=== PATIENT | female | born 1990 | race Caucasian/White ===

== ENCOUNTER 2016-12-28 21:19 | Emergency (ER) | payer OTHER ==
[~2016-12-28] VITALS: Ht 152.4 cm; Wt 74.8 kg
[~2016-12-28 21:19] MED LIST: AZAT50TA PO; AZAT50TA20 PO; BUDE3CAP15 PO; HYDR-2758 PO; HYDR-2762 PO; HYDR-971 PO; LINA290C PO; METR500T PO; OMEP40CA5 PO; ONDA4TAB12 SL; OXYC-323 PO; PANT40TA3 PO; PRED20TA PO; REMI100D IV
[2016-12-28] MEDS ORDERED: fentaNYL PF VIAL 100 MCG/2 ML VIAL IV ONE ×2 (21:45→23:30)
[2016-12-28] MEDS ORDERED: IV NORMAL SALINE 1000ML BAG 1,000 ML IV ONE (21:45)
[2016-12-28] MEDS ORDERED: ONDANSETRON PF 4 MG/2 ML VIAL. IV ONE (21:45)
--- NOTE | 2016-12-28 21:47 | PHYS DOC ---
Past Medical History Past Medical History: Other Additional Past Medical Histor: Crohn's disease Past Surgical History: Appendectomy, Colectomy, Other Additional Past Surgical Histo: Bowel resection, prateek cath Alcohol Use: None Drug Use: None Adult General Chief Complaint Chief Complaint: ABDOMINAL PAIN HPI HPI Patient is a 26 year old F who presents with abdominal pain and nausea/vomiting /diarrhea for the past 2 days. Patient states she has a history of Crohn's with a bowel resection a couple years ago with a history of small bowel obstructions. Patient states she also has no appendix or gallbladder. Patient states she's been unable to keep anything down and has had persistent diarrhea. Patient denies any fevers. Patient denies any chest pain or shortness of breath. Patient has no other complaints. Review of Systems Review of Systems GEN: Denies fevers, chills, sweats HEENT: Denies blurred vision, sore throat CV: Denies chest pain RESP: Denies shortness of air, cough GI: Generalized abdominal pain with nausea/vomiting/diarrhea NEURO: Denies confusion, dizziness MSK: Denies weakness, joint pain/swelling Current Medications Current Medications Current Medications Medications (Trade) Dose Ordered Sig/Darcy Start Time Stop Time Status Last Admin Dose Admin Fentanyl Citrate (Fentanyl 2ml Vial) 50 mcg 1X ONCE 12/28/16 23:30 12/28/16 23:31 DC 12/28/16 23:28 50 MCG Info (Do NOT chart on this entry -- for MONITORING) 1 each PRN DAILY PRN 12/28/16 22:00 12/30/16 21:59 Iohexol (Omnipaque 300 Mg/ml) 75 ml 1X ONCE 12/28/16 22:00 12/28/16 22:01 DC Ondansetron HCl (Zofran) 4 mg 1X ONCE 12/28/16 21:45 12/28/16 21:46 DC 12/28/16 22:27 4 MG Sodium Chloride 1,000 ml @ 1,000 mls/hr 1X ONCE 12/28/16 21:45 12/28/16 22:44 DC 12/28/16 22:27 1,000 MLS/HR Allergies Allergies Allergies Coded Allergies Type Severity Reaction Last Updated Verified morphine Allergy Severe Anaphylaxis 12/27/16 No adalimumab Allergy Intermediate 12/27/16 Yes adhesive Adverse Reaction Intermediate SKIN BLISTERING, REDNESS, PAPER TAPE OK 12/27/16 Yes Physical Exam Physical Exam GEN.: Mod distress. Alert and oriented. HEENT: Head is normocephalic, atraumatic NECK: Supple. LUNGS: CTAB. HEART: RRR, S1, S2 present. Peripheral pulses intact ABDOMEN: Soft, diffuse generalized tenderness, no rebound tenderness, no abdominal distention. Positive bowel sounds. EXTREMITIES: Without any cyanosis. NEUROLOGIC: Normal speech, normal tone PSYCHIATRIC: Normal affect, normal mood. SKIN: No ulcerations Current Patient Data Vital Signs Vital Signs Date Time Temp Pulse Resp B/P (MAP) Pulse Ox O2 Delivery O2 Flow Rate FiO2 12/28/16 21:28 98.2 105 18 136/91 (106) 98 Room Air 98.2 Lab Values Laboratory Tests Test 12/28/16 21:30 12/28/16 21:32 12/28/16 22:21 POC Urine HCG, Qualitative Hcg negative (Negative) Urine Collection Type Unknown Urine Color Yellow Urine Clarity Clear Urine pH 6.0 Urine Specific [place] 1.025 Urine Protein Negative mg/dL (NEG-TRACE) Urine Glucose (UA) Negative mg/dL (NEG) Urine Ketones (Stick) Negative mg/dL (NEG) Urine Blood Negative (NEG) Urine Nitrite Negative (NEG) Urine Bilirubin Negative (NEG) Urine Urobilinogen Dipstick 0.2 mg/dL (0.2 mg/dL) Urine Leukocyte Esterase Small (NEG) Urine RBC Occ /HPF (0-2) Urine WBC 5-10 /HPF (0-4) Urine Squamous Epithelial Cells Many /LPF Urine Bacteria Moderate /HPF (0-FEW) Urine Mucus Mod /LPF White Blood Count 9.6 x10^3/uL (4.0-11.0) Red Blood Count 4.73 x10^6/uL (3.50-5.40) Hemoglobin 14.3 g/dL (12.0-15.5) Hematocrit 40.9 % (36.0-47.0) Mean Corpuscular Volume 87 fL (79-100) Mean Corpuscular Hemoglobin 30 pg (25-35) Mean Corpuscular Hemoglobin Concent 35 g/dL (31-37) Red Cell Distribution Width 13.0 % (11.5-14.5) Platelet Count 200 x10^3/uL (140-400) Neutrophils (%) (Auto) 48 % (31-73) Lymphocytes (%) (Auto) 44 % (24-48) Monocytes (%) (Auto) 6 % (0-9) Eosinophils (%) (Auto) 2 % (0-3) Basophils (%) (Auto) 1 % (0-3) Neutrophils # (Auto) 4.6 x10^3uL (1.8-7.7) Lymphocytes # (Auto) 4.2 x10^3/uL (1.0-4.8) Monocytes # (Auto) 0.5 x10^3/uL (0.0-1.1) Eosinophils # (Auto) 0.1 x10^3/uL (0.0-0.7) Basophils # (Auto) 0.1 x10^3/uL (0.0-0.2) Sodium Level 141 mmol/L (136-145) Potassium Level 3.3 mmol/L (3.5-5.1) L Chloride Level 104 mmol/L (98-107) Carbon Dioxide Level 28 mmol/L (21-32) Anion Gap 9 (6-14) Blood Urea Nitrogen 12 mg/dL (7-20) Creatinine 0.6 mg/dL (0.6-1.0) Estimated GFR (Cockcroft-Gault) 119.0 BUN/Creatinine Ratio 20 (6-20) Glucose Level 113 mg/dL (70-99) H Lactic Acid Level 0.8 mmol/L (0.4-2.0) Calcium Level 9.1 mg/dL (8.5-10.1) Total Bilirubin 0.5 mg/dL (0.2-1.0) Aspartate Amino Transferase (AST) 16 U/L (15-37) Alanine Aminotransferase (ALT) 46 U/L (14-59) Alkaline Phosphatase 65 U/L (46-116) Total Protein 7.4 g/dL (6.4-8.2) Albumin 3.7 g/dL (3.4-5.0) Albumin/Globulin Ratio 1.0 (1.0-1.7) Lipase 140 U/L (73-393) Laboratory Tests 12/28/16 22:21 Laboratory Tests 12/28/16 22:21 EKG EKG [] Radiology/Procedures Radiology/Procedures CT scan of the abdomen pelvis NAD[] Course & Med Decision Making Course & Med Decision Making Pertinent Labs and Imaging studies reviewed. (See chart for details) ED course: Patient was seen and examined emergency room abdominal workup was ordered along with a CT scan abdomen pelvis with contrast 2353: Patient was reevaluated in which she was feeling much better and her nausea and vomiting has ceased. Patient was updated on CT findings and lab work. Patient was told she had a UTI and be treated with some antibiotics. Patient stable for discharge. MDM: After reviewing the chart, CC/HPI/PMH, physical exam, [lab results], [ radiological results], I do not believe the patient has an intra-abdominal emergency warranting further workup and/or admission at this time. Patient is stable for discharge. Patient be treated with a UTI with oral antibiotics as an outpatient. Additional verbal discharge instructions were provided to the patient and that if symptoms get worse or any new symptoms arise that are worrisome to the patient she is to return to the emergency room immediately [] Dragon Disclaimer Dragon Disclaimer This electronic medical record was generated, in whole or in part, using a voice recognition dictation system. Departure Departure Impression: Primary Impression: UTI (urinary tract infection) Additional Impression: Abdominal pain Disposition: HOME, SELF-CARE Condition: IMPROVED Referrals: DINAH BARRAZA MD (PCP) Patient Instructions: Urinary Tract Infection, [id number] Additional Instructions: Please follow-up with your family doctor next one to 2 days and return if symptoms increase Scripts Nitrofurantoin Monohyd/M-Cryst (MACROBID 100 MG CAPSULE) 100 Mg Capsule 1 CAP PO BID, #14 CAP Prov: HILDA VICENTE DO 12/28/16 Problem Qualifiers HILDA VICENTE DO Dec 28, 2016 21:47
[2016-12-28 21:54] LABS: BILIRUBIN,URINE NEGATIVE (NEG); GLUCOSE,URINE NEGATIVE (NEG); NITRITE,URINE NEGATIVE (NEG); PROTEIN,URINE NEGATIVE (NEG-TRACE); UROBILINOGEN,URINE 0.2 mg/dL (0.2 mg/dL)
[2016-12-28] MEDS ORDERED: CONTRAST GIVEN MC PRN (22:00)
[2016-12-28] MEDS ORDERED: IOHEXOL 300 MG/ML 75 ML VIAL IV ONE ×2 (22:00)
[2016-12-28 22:02] LABS: BACTERIA,URINE MODERATE /HPF (0-FEW); RBC,URINE OCC /HPF (0-2); SQUAMOUS EPITHELIAL CELL,UR MANY /LPF
[2016-12-28 22:36] LABS: BASO # 0.1 x10^3/uL (0.0-0.2); BASO % 1 % (0-3); EOS % 2 % (0-3); HEMATOCRIT 40.9 % (36.0-47.0); HEMOGLOBIN 14.3 g/dL (12.0-15.5); LYMPH # 4.2 x10^3/uL (1.0-4.8); LYMPH % 44 % (24-48); MEAN CORPUSCULAR HEMOGLOBIN 30 pg (25-35); MEAN CORPUSCULAR HGB CONC 35 g/dL (31-37); MEAN CORPUSCULAR VOLUME 87 fL (79-100); MONO % 6 % (0-9); NEUT % 48 % (31-73); PLATELET COUNT 200 x10^3/uL (140-400); RED BLOOD COUNT 4.73 x10^6/uL (3.50-5.40); WHITE BLOOD COUNT 9.6 x10^3/uL (4.0-11.0)
[2016-12-28 22:48] LABS: CALCIUM 9.1 mg/dL (8.5-10.1); CREATININE 0.6 mg/dL (0.6-1.0); POTASSIUM 3.3 mmol/L (3.5-5.1)
[2016-12-28 22:54] LABS: ALBUMIN 3.7 g/dL (3.4-5.0); TOTAL BILIRUBIN 0.5 mg/dL (0.2-1.0); TOTAL PROTEIN 7.4 g/dL (6.4-8.2)
--- NOTE | 2016-12-28 23:39 | RAD ---
Indication: Abdominal pain. Crohn's disease. Bowel surgeries. Appendectomy. Technique: Axial images and coronal and sagittal reformatted images are provided. 75 mL of intravenous Omnipaque 300 was administered without complication. Comparison is from May 01, 2015. One or more of the following individualized dose reduction techniques were utilized for this examination: 1. Automated exposure control 2. Adjustment of the mA and/or kV according to patient size 3. Use of iterative reconstruction technique Findings: The lung bases are clear. There is no pleural effusion. The heart is not enlarged. There is mild fatty infiltration of the liver. Gallbladder is absent. Spleen is not enlarged. Pancreas and adrenals are unremarkable. Kidneys are symmetrically perfused. Aorta is normal caliber. Lack of oral contrast limits evaluation of bowel. There is no small bowel obstruction or definite mural thickening. Colon is not well distended limiting evaluation, especially at the descending colon. There is potentially mural thickening in the descending and sigmoid colon although this certainly could be artifactual given the degree of distention. There is no abscess or free air. There are ligation clips. There is no adnexal mass. Bladder is unremarkable. There are degenerative changes in the spine. IMPRESSION: 1. No acute abdominal findings. 2. Evaluation of bowel is limited without oral contrast. There is no definite small bowel mural thickening. There could be mural thickening in the descending or sigmoid colon although this certainly could be artifactual secondary to incomplete distention. Electronically signed by: Abel Funez MD (12/28/2016 11:36 PM) [facility]
[2016-12-28] MEDS ORDERED: NITR100C62 PO (23:57)
[2016-12-29] VITALS: BP 118/77
[2016-12-29] MEDS ORDERED: HEPARIN PF 500 UNIT/5 ML DISP.SYRIN. IV ONE (00:30)
== END 2016-12-29 00:25 | disposition home or self-care (01) ==
LOC: ER 21:19
DX: N39.0 Urinary tract infection, site not specified (principal); K50.90 Crohn's disease, unspecified, without complications; Z98.890 Other specified postprocedural states; Z90.49 Acquired absence of other specified parts of digestive tract; Z88.6 Allergy status to analgesic agent; Z88.8 Allergy status to other drugs, medicaments and biological substances
CPT/HCPCS: 36415; 74177; 80053; 81001; 81025; 83605; 83690; 85025; 87086; 96361; 96374; 96375; 96376; 99285; J2405; J3010; J7030; Q9967

== ENCOUNTER 2017-08-09 10:48 | Emergency (ER) | payer BC, OTHER ==
[2017-08-09 11:11] LABS: URINE HCG POC HCG NEGATIVE (Negative)
[2017-08-09] MEDS ORDERED: 0.9 % SOD CHL for STERILE FIELD 10 ML DISP.SYRIN. (11:17)
[2017-08-09 11:30] LABS: BILIRUBIN,URINE NEGATIVE (NEG); CLARITY,URINE CLEAR; COLOR,URINE YELLOW; GLUCOSE,URINE NEGATIVE (NEG); NITRITE,URINE NEGATIVE (NEG); PH,URINE 5.5; PROTEIN,URINE NEGATIVE (NEG-TRACE); UROBILINOGEN,URINE 0.2 mg/dL (0.2 mg/dL)
[2017-08-09 11:42] LABS: ADD MAN DIFF? NO
[2017-08-09 11:43] LABS: BACTERIA,URINE FEW /HPF (0-FEW); SQUAMOUS EPITHELIAL CELL,UR MOD /LPF
[2017-08-09 11:44] LABS: BASO % 1 % (0-3); EOS # 0.1 x10^3/uL (0.0-0.7); EOS % 2 % (0-3); HEMATOCRIT 40.8 % (36.0-47.0); HEMOGLOBIN 14.5 g/dL (12.0-15.5); LYMPH # 2.7 x10^3/uL (1.0-4.8); LYMPH % 38 % (24-48); MEAN CORPUSCULAR HEMOGLOBIN 30 pg (25-35); MEAN CORPUSCULAR HGB CONC 36 g/dL (31-37); MEAN CORPUSCULAR VOLUME 85 fL (79-100); MONO # 0.3 x10^3/uL (0.0-1.1); MONO % 4 % (0-9); NEUT % 56 % (31-73); PLATELET COUNT 209 x10^3/uL (140-400); RED BLOOD COUNT 4.81 x10^6/uL (3.50-5.40); RED CELL DISTRIBUTION WIDTH 12.6 % (11.5-14.5); WHITE BLOOD COUNT 7.1 x10^3/uL (4.0-11.0)
[2017-08-09] MEDS: IV NORMAL SALINE 1000ML BAG 1,000 ML IV (11:45)
[2017-08-09] MEDS: fentaNYL PF VIAL 100 MCG/2 ML VIAL IV (11:46)
[2017-08-09 12:03] LABS: ANION GAP 9 (6-14); BLOOD UREA NITROGEN 15 mg/dL (7-20); BUN/CREATININE RATIO 25 (6-20); CALCIUM 8.8 mg/dL (8.5-10.1); CARBON DIOXIDE 27 mmol/L (21-32); CHLORIDE 104 mmol/L (98-107); CREATININE 0.6 mg/dL (0.6-1.0); GFR 118.2; GLUCOSE 93 mg/dL (70-99); POTASSIUM 3.5 mmol/L (3.5-5.1); SODIUM 140 mmol/L (136-145)
[2017-08-09 12:07] LABS: ALBUMIN 3.7 g/dL (3.4-5.0); ALBUMIN/GLOBULIN RATIO 0.9 (1.0-1.7); ALK PHOS 64 U/L (46-116); ALT (SGPT) 36 U/L (14-59); AST (SGOT) 18 U/L (15-37); LIPASE 150 U/L (73-393); TOTAL BILIRUBIN 0.9 mg/dL (0.2-1.0); TOTAL PROTEIN 7.9 g/dL (6.4-8.2)
[2017-08-09] MEDS: IOHEXOL 240 MG/ML 50ML VIAL. PO (12:14)
[2017-08-09] MEDS: IOHEXOL 300 MG/ML 100ML VIAL. IV (12:14)
[2017-08-09] MEDS ORDERED: CONTRAST GIVEN MC (12:15)
[2017-08-09 12:38] LABS: C-REACTIVE PROTEIN 0.7 mg/L (0-3.3)
[2017-08-09 13:25] LABS: SEDIMENTATION RATE 6 (0-25)
[2017-08-09] MEDS: HEPARIN PF 500 UNIT/5 ML DISP.SYRIN. IV (13:40)
== END 2017-08-09 13:48 | disposition home or self-care (01) ==
LOC: ER 10:48
DX: K50.90 Crohn's disease, unspecified, without complications (principal); Z90.49 Acquired absence of other specified parts of digestive tract; Z98.51 Tubal ligation status; Z88.5 Allergy status to narcotic agent; Z88.8 Allergy status to other drugs, medicaments and biological substances; Z91.048 Other nonmedicinal substance allergy status
CPT/HCPCS: 36415; 74177; 80053; 81001; 81025; 83690; 85025; 85651; 86140; 96374; 96375; 99285-25; J3010; J7030; Q9966; Q9967

== ENCOUNTER 2018-02-02 23:34 | Emergency (ER) | payer BC ==
[~2018-02-02] VITALS: Ht 154.9 cm; Wt 74.8 kg
[~2018-02-02 23:34] MED LIST changes: +DICY20TA3 PO; +NITR100C62 PO
[2018-02-03] VITALS: BP 136/82
[2018-02-03] MEDS ORDERED: methylPREDNISolone SOD SUCC PF 125 MG/2 ML VIAL. IM ONE (00:15)
[2018-02-03] MEDS ORDERED: ONDANSETRON ODT 4 MG TAB.RAPDIS. PO ONE (00:15)
[2018-02-03] MEDS ORDERED: oxyCODONE IR 5 MG TABLET PO ONE (00:15)
[2018-02-03] MEDS ORDERED: PRED20TA PO (00:23)
[2018-02-03] MEDS ORDERED: OXYC10TA PO (00:23)
--- NOTE | 2018-02-03 01:02 | PHYS DOC ---
Past Medical History Past Medical History: Other Additional Past Medical Histor: chron's Past Surgical History: Appendectomy, Cholecystectomy, Colectomy, Tubal ligation , Other Additional Past Surgical Histo: Bowel resection, prateek cath, bowel resection, filshy clamps Alcohol Use: None Drug Use: None Adult General Chief Complaint Chief Complaint: ABDOMINAL PAIN HPI HPI Patient is a 27 year old female who presents with abdominal pain and Crohn's disease. Patient is known to have Crohn's disease. She was diagnosed 11 years ago. She is followed normally by GI at this hospital. Incidentally, she was close to [facility] 3 days earlier. She presented to the emergency department with inability to keep any fluids or her nausea medication down. According to the patient, she was inpatient there for the last 3 days. She underwent extensive workup. She had CT scan of the abdomen pelvis which she states was positive for inflammatory changes. She also had both endoscopy and colonoscopy. She states her diagnosis of Crohn's was confirmed an additional biopsies were taken for celiac. The patient states during her inpatient stay, she was never started on steroids. Ultimately, she was discharged to home yesterday with Santi. She presents to this emergency department today complaining of ongoing abdominal pain which she states is classic for her usual Crohn's course. The patient states she would normally have prednisone and pain medications which would control her symptoms but she did not receive these at discharge. Her pain is diffuse and mostly over the lower portion of her abdomen. She has no irregular vaginal bleeding. She does have some bleeding associated with her stools but no chana blood and not worse compared to her normal. Review of Systems Review of Systems Constitutional: Denies fever or chills Eyes: Denies change in visual acuity, redness, or eye pain HENT: Denies nasal congestion or sore throat Respiratory: Denies cough or shortness of breath Cardiovascular: No additional information not addressed in HPI GI: as above : Denies dysuria Musculoskeletal: Denies back pain Integument: Denies rash or skin lesions Neurologic: Denies headache All other systems were reviewed and found to be within normal limits, except as documented in this note. Current Medications Current Medications Current Medications Medications (Trade) Dose Ordered Sig/Darcy Start Time Stop Time Status Last Admin Dose Admin Methylprednisolone Sodium Succinate (SOLU-Medrol 125MG VIAL) 125 mg 1X ONCE 02/03/18 00:15 02/03/18 00:16 DC 02/03/18 00:25 125 MG Ondansetron HCl (Zofran Odt) 8 mg 1X ONCE 02/03/18 00:15 02/03/18 00:16 DC 02/03/18 00:23 8 MG Oxycodone HCl (Roxicodone) 10 mg 1X ONCE 02/03/18 00:15 02/03/18 00:16 DC 02/03/18 00:24 10 MG Allergies Allergies Allergies Coded Allergies Type Severity Reaction Last Updated Verified morphine Allergy Severe Anaphylaxis 02/07/17 No adalimumab Allergy Intermediate 02/07/17 Yes adhesive Adverse Reaction Intermediate SKIN BLISTERING, REDNESS, PAPER TAPE OK 02/07/17 Yes Physical Exam Physical Exam Constitutional: Well developed, well nourished, no acute distress, non-toxic appearance HENT: Normocephalic, atraumatic, bilateral external ears normal, oropharynx moist Eyes: PERRLA, EOMI, conjunctiva normal Neck: Normal range of motion, no tenderness Cardiovascular:Heart rate regular rhythm, no murmur Lungs & Thorax: Bilateral breath sounds clear to auscultation Abdomen: Bowel sounds normal, soft, no tenderness Skin: Warm, dry, no erythema, no rash Extremities: No edema Neurologic: Alert and oriented X 3 Psychologic: Affect normal Current Patient Data Vital Signs Vital Signs Date Time Temp Pulse Resp B/P (MAP) Pulse Ox O2 Delivery O2 Flow Rate FiO2 02/03/18 00:24 18 Room Air 02/03/18 00:00 98.2 78 136/82 (100) 98 98.2 EKG EKG [] Radiology/Procedures Radiology/Procedures [] Course & Med Decision Making Course & Med Decision Making Pertinent Labs and Imaging studies reviewed. (See chart for details) Patient is evaluated in the emergency department for Crohn's disease and pain related to. She was just discharged after a 3 day hospitalization at a nearby hospital where she had an extensive workup only to confirm her known diagnosis. Ultimately, the patient was discharged home without treatment of a Crohn's flare. The reasons for this are unclear and I do not have immediate access to her results from the other facility. The patient did contact her primary GI today and was referred to this emergency room. I spent a large amount of time and discussions with this patient prior to beginning an extensive additional workup or admission to this facility. The patient primarily is requesting pain control and steroid. She seems very eligible about her condition. She does not desire admission to the hospital or even additional workup if unnecessary. I did examine the patient. She has normal vital signs. Her abdominal exam is soft with no guarding or rebound. She has brisk capillary refill. She is not tachycardic. There is no fever. This evening, I think it is reasonable to offer the patient outpatient therapy. She states she has treated her condition many times at home with outpatient therapy. In the emergency department today, the patient is given Solu-Medrol intramuscular. She is given medications for pain and nausea. Plan is for discharge to home without further workup this evening. The patient is very stable and this is the treatment plan she desires. I did give her a prescription for prednisone taper over the next 2 weeks along with some nausea medication and pain medication to use at home. The patient will come back to the ER if her symptoms severely worsen or if she develops a fever or becomes unable to tolerate anything by mouth at home. She is advised to contact her primary GI physician in the morning to notify that she in fact was not admitted to the hospital this evening. She will follow-up in the office. [place] Disclaimer Dragon Disclaimer This electronic medical record was generated, in whole or in part, using a voice recognition dictation system. Departure Departure Impression: Primary Impression: Crohn's colitis Disposition: 01 HOME, SELF-CARE Condition: GOOD Patient Instructions: Crohn's Disease Scripts Oxycodone Hcl (OXYCODONE HCL) 10 Mg Tablet 1 TAB PO TID for severe pain, #21 TAB Prov: BOSSMAN SANABRIA DO 02/03/18 Prednisone (PREDNISONE) 20 Mg Tablet 1 TAB PO UD for 17 Days, #30 TAB Take 3 tablets daily by mouth for 5 days. Then take 2 tablets daily by mouth for 5 days. Then take one tablet daily by mouth for 3 days. Then take one half tablet daily by mouth until gone. Prov: BOSSMAN SANABRIA DO 02/03/18 BOSSMAN SANABRIA DO Feb 03, 2018 01:02
[2018-02-10] MEDS ORDERED: PRAM0.255 PO (15:32)
[2018-02-12] MEDS ORDERED: DICY20TA3 PO (11:02)
[2018-02-12] MEDS ORDERED: OXYC10TA PO (11:02)
== END 2018-02-03 00:33 | disposition home or self-care (01) ==
LOC: ER 23:34
DX: K50.10 Crohn's disease of large intestine without complications (principal); Z90.89 Acquired absence of other organs; Z90.49 Acquired absence of other specified parts of digestive tract; Z98.51 Tubal ligation status; Z88.5 Allergy status to narcotic agent; Z88.8 Allergy status to other drugs, medicaments and biological substances
CPT/HCPCS: 96372; 99283; J2930; Q0162; 81001

== ENCOUNTER 2018-03-21 18:20 | Emergency (ER) | payer BC ==
[~2018-03-21] VITALS: Ht 165.1 cm; Wt 72.6 kg
[~2018-03-21 18:20] MED LIST changes: -HYDR-2758 PO; +HYDR-2761 PO; -HYDR-2762 PO; +HYDR-2765 PO; +HYDR-3164 PO; -HYDR-971 PO; -LINA290C PO; +LINZESS290 MCG PO; -OXYC-323 PO; +OXYC10TA PO; +OXYC1TAB15 PO; +PRAM0.255 PO
[2018-03-21] MEDS ORDERED: IV NORMAL SALINE 1000ML BAG 1,000 ML IV ONE (20:15)
[2018-03-21] MEDS ORDERED: ONDANSETRON PF 4 MG/2 ML VIAL. IV ONE (20:15)
[2018-03-21] MEDS ORDERED: methylPREDNISolone SOD SUCC PF 125 MG/2 ML VIAL. IV ONE (20:15)
[2018-03-21] MEDS ORDERED: HYDROmorphone 2 MG/ML VIAL IV ONE ×2 (20:15→22:00)
[2018-03-21 20:25] LABS: BASO # 0.1 x10^3/uL (0.0-0.2); BASO % 1 % (0-3); EOS # 0.1 x10^3/uL (0.0-0.7); EOS % 1 % (0-3); HEMATOCRIT 41.5 % (36.0-47.0); HEMOGLOBIN 14.6 g/dL (12.0-15.5); LYMPH # 3.2 x10^3/uL (1.0-4.8); LYMPH % 44 % (24-48); MEAN CORPUSCULAR HEMOGLOBIN 30 pg (25-35); MEAN CORPUSCULAR HGB CONC 35 g/dL (31-37); MEAN CORPUSCULAR VOLUME 86 fL (79-100); MONO # 0.4 x10^3/uL (0.0-1.1); MONO % 5 % (0-9); NEUT # 3.6 x10^3uL (1.8-7.7); NEUT % 50 % (31-73); PLATELET COUNT 195 x10^3/uL (140-400); RED BLOOD COUNT 4.85 x10^6/uL (3.50-5.40); RED CELL DISTRIBUTION WIDTH 13.1 % (11.5-14.5); WHITE BLOOD COUNT 7.3 x10^3/uL (4.0-11.0)
[2018-03-21 20:32] LABS: CALCIUM 9.5 mg/dL (8.5-10.1); CREATININE 0.7 mg/dL (0.6-1.0); GFR 98.9; POTASSIUM 3.8 mmol/L (3.5-5.1)
[2018-03-21 20:37] LABS: ALBUMIN 4.1 g/dL (3.4-5.0); DIRECT BILIRUBIN 0.1 mg/dL (0.0-0.2); TOTAL BILIRUBIN 0.5 mg/dL (0.2-1.0)
[2018-03-21 21:30] VITALS: BP 107/58
--- NOTE | 2018-03-21 22:04 | PHYS DOC ---
Past Medical History Past Medical History: Other Additional Past Medical Histor: chron's Past Surgical History: Appendectomy, Cholecystectomy, Colectomy, Tubal ligation , Other Additional Past Surgical Histo: Bowel resection, prateek cath, bowel resection, filshy clamps Alcohol Use: None Drug Use: None Adult General Chief Complaint Chief Complaint: ABDOMINAL PAIN HPI HPI Patient is a 27 year old female who presents with abdominal pain. Patient has chronic abdominal pain secondary to Crohn's disease. She is followed by gastroenterology at this hospital. She comes to the ER today complaining of acute on chronic symptoms. Her pain is been flared over the last 3-4 days. She had previously been treated with a short burst of prednisone for her pain returned after completing the prednisone. No vomiting but she does have persistent nausea. No fever or chills. No urinary symptoms. No vaginal symptoms. The patient is status post BTL. She relates that her pain symptoms are exactly identical to her normal pain related to Crohn's disease. She does use hydrocodone at home but is currently out of those medications. Review of Systems Review of Systems Constitutional: Denies fever Eyes: Denies change in visual acuity HENT: Denies nasal congestion Respiratory: Denies cough or shortness of breath Cardiovascular: No additional information not addressed in HPI GI: Denies abdominal pain, nausea : Denies dysuria or hematuria Musculoskeletal: Denies back pain Integument: Denies rash or skin lesions Neurologic: Denies headache All other systems were reviewed and found to be within normal limits, except as documented in this note. Current Medications Current Medications Current Medications Medications (Trade) Dose Ordered Sig/Darcy Start Time Stop Time Status Last Admin Dose Admin Hydromorphone HCl (Dilaudid) 2 mg 1X ONCE 03/21/18 22:00 03/21/18 22:01 03/21/18 21:57 2 MG Methylprednisolone Sodium Succinate (SOLU-Medrol 125MG VIAL) 125 mg 1X ONCE 03/21/18 20:15 03/21/18 20:20 DC 03/21/18 20:50 125 MG Ondansetron HCl (Zofran) 4 mg 1X ONCE 03/21/18 20:15 03/21/18 20:20 DC 03/21/18 20:50 4 MG Sodium Chloride 1,000 ml @ 1,000 mls/hr 1X ONCE 03/21/18 20:15 03/21/18 21:14 DC 03/21/18 20:51 1,000 MLS/HR Allergies Allergies Allergies Coded Allergies Type Severity Reaction Last Updated Verified morphine Allergy Severe Anaphylaxis 02/07/17 No adalimumab Allergy Intermediate 02/07/17 Yes adhesive Adverse Reaction Intermediate SKIN BLISTERING, REDNESS, PAPER TAPE OK 02/07/17 Yes Physical Exam Physical Exam Constitutional: Well developed, well nourished, no acute distress, non-toxic appearance HENT: Normocephalic, atraumatic, bilateral external ears normal, oropharynx moist Eyes: PERRLA, EOMI, conjunctiva normal Neck: Normal range of motion Cardiovascular:Heart rate regular rhythm, no murmur Lungs & Thorax: Bilateral breath sounds clear to auscultation Abdomen: Bowel sounds normal, soft, diffusely tender to palpate but no guarding or rebound Skin: Warm, dry, no erythema, no rash Extremities: No tenderness, Neurologic: Alert and oriented X 3 Psychologic: Affect normal Current Patient Data Vital Signs Vital Signs Date Time Temp Pulse Resp B/P (MAP) Pulse Ox O2 Delivery O2 Flow Rate FiO2 03/21/18 20:49 16 97 Room Air 03/21/18 19:20 100.1 90 124/64 (84) 100.1 Lab Values Laboratory Tests Test 03/21/18 20:09 White Blood Count 7.3 x10^3/uL (4.0-11.0) Red Blood Count 4.85 x10^6/uL (3.50-5.40) Hemoglobin 14.6 g/dL (12.0-15.5) Hematocrit 41.5 % (36.0-47.0) Mean Corpuscular Volume 86 fL (79-100) Mean Corpuscular Hemoglobin 30 pg (25-35) Mean Corpuscular Hemoglobin Concent 35 g/dL (31-37) Red Cell Distribution Width 13.1 % (11.5-14.5) Platelet Count 195 x10^3/uL (140-400) Neutrophils (%) (Auto) 50 % (31-73) Lymphocytes (%) (Auto) 44 % (24-48) Monocytes (%) (Auto) 5 % (0-9) Eosinophils (%) (Auto) 1 % (0-3) Basophils (%) (Auto) 1 % (0-3) Neutrophils # (Auto) 3.6 x10^3uL (1.8-7.7) Lymphocytes # (Auto) 3.2 x10^3/uL (1.0-4.8) Monocytes # (Auto) 0.4 x10^3/uL (0.0-1.1) Eosinophils # (Auto) 0.1 x10^3/uL (0.0-0.7) Basophils # (Auto) 0.1 x10^3/uL (0.0-0.2) Sodium Level 139 mmol/L (136-145) Potassium Level 3.8 mmol/L (3.5-5.1) Chloride Level 103 mmol/L (98-107) Carbon Dioxide Level 25 mmol/L (21-32) Anion Gap 11 (6-14) Blood Urea Nitrogen 11 mg/dL (7-20) Creatinine 0.7 mg/dL (0.6-1.0) Estimated GFR (Cockcroft-Gault) 98.9 Glucose Level 89 mg/dL (70-99) Calcium Level 9.5 mg/dL (8.5-10.1) Total Bilirubin 0.5 mg/dL (0.2-1.0) Direct Bilirubin 0.1 mg/dL (0.0-0.2) Aspartate Amino Transferase (AST) 17 U/L (15-37) Alanine Aminotransferase (ALT) 44 U/L (14-59) Alkaline Phosphatase 67 U/L (46-116) Total Protein 8.0 g/dL (6.4-8.2) Albumin 4.1 g/dL (3.4-5.0) Lipase 70 U/L (73-393) L Laboratory Tests 03/21/18 20:09 Laboratory Tests 03/21/18 20:09 EKG EKG [] Radiology/Procedures Radiology/Procedures [] Course & Med Decision Making Course & Med Decision Making Pertinent Labs and Imaging studies reviewed. (See chart for details) Patient was evaluated in the emergency department for abdominal pain which was exactly typical for her Crohn's symptoms. In the ER, she had basic labs completed. There were no acute findings. Based on her physical exam, there is no indication for imaging this evening. She was given IV fluids and medications for nausea. A single dose of Zofran did improve her nausea symptoms. She was given 2 doses of Dilaudid IV in the emergency room which improved her pain. She was given a by mouth challenge and did tolerate without difficulty. Patient was discharged to home. She was placed on a 3 week present taper and given hydrocodone for more severe pain symptoms. 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 Dragon Disclaimer Dragon Disclaimer This electronic medical record was generated, in whole or in part, using a voice recognition dictation system. Departure Departure Disposition: 01 HOME, SELF-CARE Condition: GOOD Referrals: DINAH BARRAZA MD (PCP) BOSSMAN SANABRIA DO Mar 21, 2018 22:04
[2018-03-21] MEDS ORDERED: PRED20TA PO (22:07)
[2018-03-21] MEDS ORDERED: HYDR-3164 PO (22:07)
[2018-03-21] MEDS ORDERED: HEPARIN PF 500 UNIT/5 ML DISP.SYRIN. IV ONE (22:45)
== END 2018-03-21 22:50 | disposition home or self-care (01) ==
LOC: ER 18:20
DX: G89.29 Other chronic pain (principal); R10.84 Generalized abdominal pain; R11.0 Nausea; K50.90 Crohn's disease, unspecified, without complications; Z90.89 Acquired absence of other organs; Z90.49 Acquired absence of other specified parts of digestive tract; Z98.51 Tubal ligation status; Z88.5 Allergy status to narcotic agent; Z88.8 Allergy status to other drugs, medicaments and biological substances
CPT/HCPCS: 36415; 80048; 80076; 83690; 85025; 96374; 96375; 96376; 99283; J1170; J2405; J2930; J7030

== ENCOUNTER 2018-05-19 15:49 | Emergency (ER) | payer BC, OTHER ==
[~2018-05-19] VITALS: Ht 162.6 cm; Wt 65.8 kg
[2018-05-19] MEDS ORDERED: ONDANSETRON PF 4 MG/2 ML VIAL. IV ONE (16:30)
[2018-05-19] MEDS ORDERED: IV NORMAL SALINE 1000ML BAG 1,000 ML IV ONE (16:30)
--- NOTE | 2018-05-19 16:52 | PHYS DOC ---
Past Medical History Past Medical History: Hyperthyroid, Other Additional Past Medical Histor: chron's (FELICIA TALBERT APRN) Past Surgical History: Appendectomy, Cholecystectomy, Colectomy, Tubal ligation , Other Additional Past Surgical Histo: Bowel resection, prateek cath, bowel resection, filshy clamps (FELICIA TALBERT APRN) Alcohol Use: None Drug Use: None (FELICIA TALBERT APRN) Adult General Chief Complaint Chief Complaint: DIARRHEA HPI HPI Patient is a 28 year old female who presents to the emergency department with complaints of nausea, vomiting, diarrhea, and upper abdominal pain for the last week. Patient states she has a history of Crohn's disease. She states that she is not been able to keep anything down for the last 24 hours. Patient reports concerns of dehydration. She denies any fever, dysuria, cough, shortness of breath, dizziness, or syncope. She currently rates are pain a 7/10 on the pain scale, there are no alleviating factors. (FELICIA TALBERT APRN) Review of Systems Review of Systems Constitutional: Denies fever or chills [] Eyes: Denies redness, or eye pain [] HENT: Denies nasal congestion or sore throat [] Respiratory: Denies cough or shortness of breath [] Cardiovascular: No additional information not addressed in HPI [] GI: see HPI : Denies dysuria, increase frequency, urgency, or hematuria [] Musculoskeletal: Denies back pain or joint pain [] Integument: Denies rash or skin lesions [] Neurologic: Denies headache, focal weakness or sensory changes [] complete systems were reviewed and found to be within normal limits, except as documented in this note. (FELICIA TALBERT APRN) Current Medications Current Medications Current Medications Medications (Trade) Dose Ordered Sig/Darcy Start Time Stop Time Status Last Admin Dose Admin Fentanyl Citrate (Fentanyl 2ml Vial) 50 mcg 1X ONCE 05/19/18 18:45 05/19/18 18:46 DC 05/19/18 18:49 50 MCG Heparin Sodium (Porcine) (Hep Lock Adult) 500 unit 1X ONCE 05/19/18 21:00 05/19/18 21:01 DC 05/19/18 21:08 500 UNIT Info (CONTRAST GIVEN -- Rx MONITORING) 1 each PRN DAILY PRN 05/19/18 17:30 05/19/18 21:20 DC Iohexol (Omnipaque 300 Mg/ml) 75 ml 1X ONCE 05/19/18 17:30 05/19/18 17:31 DC 05/19/18 18:23 75 ML Ondansetron HCl (Zofran) 4 mg 1X ONCE 05/19/18 16:30 05/19/18 16:35 DC 05/19/18 17:25 4 MG Sodium Chloride 1,000 ml @ 1,000 mls/hr 1X ONCE 05/19/18 16:30 05/19/18 17:29 DC 05/19/18 17:22 1,000 MLS/HR (LIONEL OLIVER MD) Allergies Allergies Allergies Coded Allergies Type Severity Reaction Last Updated Verified morphine Allergy Severe Anaphylaxis 02/07/17 No adalimumab Allergy Intermediate 02/07/17 Yes adhesive Adverse Reaction Intermediate SKIN BLISTERING, REDNESS, PAPER TAPE OK 02/07/17 Yes (LIONEL OLIVER MD) Physical Exam Physical Exam Constitutional: Well developed, well nourished, no acute distress, non-toxic appearance. [] HENT: Normocephalic, atraumatic, bilateral external ears normal, oropharynx moist, no oral exudates, nose normal. [] Eyes: PERRLA, conjunctiva normal, no discharge. [] Neck: Normal range of motion, no tenderness, supple, no stridor. [] Cardiovascular:Heart rate regular rhythm, no murmur [] Lungs & Thorax: Bilateral breath sounds clear to auscultation [] Abdomen: Bowel sounds normal, soft, no epigastric tenderness, no masses, no pulsatile masses, no rebound tenderness, no guarding; LLQ and RLQ TTP. [] Skin: Warm, dry, no erythema, no rash. [] Back: No CVA tenderness. [] Extremities: No cyanosis, ROM intact, no edema. [] Neurologic: Alert and oriented X 3, normal motor function, normal sensory function, no focal deficits noted. [] Psychologic: Affect normal, judgement normal, mood normal. [] (FELICIA TALBERT APRN) Current Patient Data Vital Signs Vital Signs Date Time Temp Pulse Resp B/P (MAP) Pulse Ox O2 Delivery O2 Flow Rate FiO2 05/19/18 20:44 82 14 118/69 (85) 100 Room Air 05/19/18 17:02 98.1 98.1 (LIONEL OLIVER MD) Lab Values Laboratory Tests Test 05/19/18 17:05 05/19/18 17:09 05/19/18 17:30 Urine Collection Type Unknown Urine Color Yellow Urine Clarity Hazy Urine pH 7.0 Urine Specific [place] 1.020 Urine Protein Negative mg/dL (NEG-TRACE) Urine Glucose (UA) Negative mg/dL (NEG) Urine Ketones (Stick) Negative mg/dL (NEG) Urine Blood Negative (NEG) Urine Nitrite Negative (NEG) Urine Bilirubin Negative (NEG) Urine Urobilinogen Dipstick 0.2 mg/dL (0.2 mg/dL) Urine Leukocyte Esterase Small (NEG) Urine RBC 0 /HPF (0-2) Urine WBC 1-4 /HPF (0-4) Urine Squamous Epithelial Cells Mod /LPF Urine Bacteria Moderate /HPF (0-FEW) Urine Mucus Marked /LPF POC Urine HCG, Qualitative Hcg negative (Negative) White Blood Count 6.9 x10^3/uL (4.0-11.0) Red Blood Count 4.47 x10^6/uL (3.50-5.40) Hemoglobin 13.2 g/dL (12.0-15.5) Hematocrit 38.4 % (36.0-47.0) Mean Corpuscular Volume 86 fL (79-100) Mean Corpuscular Hemoglobin 30 pg (25-35) Mean Corpuscular Hemoglobin Concent 34 g/dL (31-37) Red Cell Distribution Width 12.9 % (11.5-14.5) Platelet Count 200 x10^3/uL (140-400) Neutrophils (%) (Auto) 58 % (31-73) Lymphocytes (%) (Auto) 36 % (24-48) Monocytes (%) (Auto) 5 % (0-9) Eosinophils (%) (Auto) 1 % (0-3) Basophils (%) (Auto) 1 % (0-3) Neutrophils # (Auto) 4.0 x10^3uL (1.8-7.7) Lymphocytes # (Auto) 2.5 x10^3/uL (1.0-4.8) Monocytes # (Auto) 0.3 x10^3/uL (0.0-1.1) Eosinophils # (Auto) 0.1 x10^3/uL (0.0-0.7) Basophils # (Auto) 0.1 x10^3/uL (0.0-0.2) Sodium Level 141 mmol/L (136-145) Potassium Level 3.8 mmol/L (3.5-5.1) Chloride Level 105 mmol/L (98-107) Carbon Dioxide Level 24 mmol/L (21-32) Anion Gap 12 (6-14) Blood Urea Nitrogen 9 mg/dL (7-20) Creatinine 0.5 mg/dL (0.6-1.0) L Estimated GFR (Cockcroft-Gault) 144.9 BUN/Creatinine Ratio 18 (6-20) Glucose Level 94 mg/dL (70-99) Calcium Level 9.1 mg/dL (8.5-10.1) Total Bilirubin 0.6 mg/dL (0.2-1.0) Aspartate Amino Transferase (AST) 17 U/L (15-37) Alanine Aminotransferase (ALT) 38 U/L (14-59) Alkaline Phosphatase 62 U/L (46-116) Total Protein 7.6 g/dL (6.4-8.2) Albumin 3.7 g/dL (3.4-5.0) Albumin/Globulin Ratio 0.9 (1.0-1.7) L Lipase 105 U/L (73-393) Laboratory Tests 05/19/18 17:30 Laboratory Tests 05/19/18 17:30 Microbiology 05/19/18 Urine Culture - Final, Complete 05/19/18 Urine Culture Result 1 (AUGIE) - Final, Complete (LIONEL OLIVER MD) Lab Values Microbiology 05/19/18 Urine Culture - Final, Complete 05/19/18 Urine Culture Result 1 (AUGIE) - Final, Complete (FELICIA TALBERT APRN) EKG EKG [] (FELICIA TALBERT APRN) Radiology/Procedures Radiology/Procedures PROCEDURE: CT ABD PELV W/ IV CONTRST ONLY CT scan abdomen and pelvis without contrast 05/19/2018 CLINICAL HISTORY: Lower abdominal pain. TECHNIQUE: After the intravenous administration of 75 cc of Omnipaque 300, contiguous, 5 mm axial sections were obtained to the abdomen and pelvis. One or more of the following individualized dose reduction techniques were utilized for this study: 1. Automated exposure control. 2. Adjustment of the mA and/or kV according to patient size. 3. Use of iterative reconstruction technique. FINDINGS: Comparison study is dated 02/10/2018. Images through the lung bases demonstrate minimal dependent subsegmental atelectasis bilaterally. The liver parenchyma has a decreased attenuation consistent with fatty infiltration. The liver is mildly enlarged measuring 20 cm in length. The spleen, pancreas, adrenal glands and left kidney are within normal limits. A 1 cm rounded low-attenuation area is seen involving the midpole of the right kidney which may represent a cyst. It is unchanged. The abdominal aorta tapers normally. Mild atherosclerotic calcification of the abdominal aorta and its branches is noted. Surgical clips are seen within the gallbladder fossa consistent with a cholecystectomy. No free fluid or free air is seen within the abdomen. There is no evidence of bowel obstruction. Images through the pelvis demonstrate the urinary bladder distended with urine. Tubal ligation bands are noted. No adnexal mass is seen. No free fluid is seen. Minimal S-shaped curvature of the thoracolumbar spine is seen. IMPRESSION: No acute abnormality is seen. [] (FELICIA TALBERT APRN) Course & Med Decision Making Course & Med Decision Making Pertinent Labs and Imaging studies reviewed. (See chart for details) dx: acute diarrhea, Crohn's disease ddx: diverticulitis, colitis, UTI, SBO patient was given 1 L of normal saline, 4 mg Zofran, and two doses of 50 mcg Fentanyl intravenously in the department, patient reported feeling better after these medications. CT abdomen and pelvis with contrast was negative for any acute findings. Prescription for hydrocodone was written. Patient was encouraged follow-up with her tack puller machine next week and increase clear fluids. Pt verbalized an understanding of discharge, medications, follow-up, home care, and return to ED precautions, was in agreement with POC. [] (FELICIA TALBERT APRN) Course & Med Decision Making Staff Physician Addendum: I was working in the ER during the course of this patient's visit. I was available for consultation as needed, but I was not directly involved in the care of this patient. (LIONEL OLIVER MD) Dragon Disclaimer Dragon Disclaimer This electronic medical record was generated, in whole or in part, using a voice recognition dictation system. (FELICIA TALBERT APRN) Departure Departure Impression: Primary Impression: Acute diarrhea Additional Impression: Crohn disease Disposition: 01 HOME, SELF-CARE Condition: STABLE Referrals: DINAH BARRAZA MD (PCP) Patient Instructions: Diarrhea, Meny-al-Fzmb, Diet for Diarrhea, Adult Additional Instructions: Increase clear fluids. follow up with your tack puller machine, call in the morning to schedule an appointment. Return to the ER if symptoms worsen. Scripts Hydrocodone Bit/Acetaminophen (HYDROCODONE-APAP 5-325 ) 1 Tab Tablet 1 TAB PO PRN Q6HRS PRN for PAIN for 3 Days, #12 TAB 0 Refills Prov: FELICIA TALBERT APRN 05/19/18 Problem Qualifiers Additional Impression: Crohn disease Gastrointestinal tract location: unspecified location Digestive disease complication type: without complication Qualified Codes: K50.90 - Crohn's disease, unspecified, without complications FELICIA TALBERT APRN May 19, 2018 16:52 LIONEL OLIVER MD May 23, 2018 01:04
[2018-05-19] MEDS ORDERED: fentaNYL PF VIAL 100 MCG/2 ML VIAL IV ONE ×2 (17:00→18:45)
[2018-05-19 17:17] LABS: BILIRUBIN,URINE NEGATIVE (NEG); COLOR,URINE YELLOW; NITRITE,URINE NEGATIVE (NEG); PROTEIN,URINE NEGATIVE (NEG-TRACE); UROBILINOGEN,URINE 0.2 mg/dL (0.2 mg/dL)
[2018-05-19 17:21] LABS: CLARITY,URINE HAZY
[2018-05-19 17:22] LABS: RBC,URINE 0 /HPF (0-2); SQUAMOUS EPITHELIAL CELL,UR MOD /LPF
[2018-05-19 17:23] LABS: BACTERIA,URINE MODERATE /HPF (0-FEW)
[2018-05-19] MEDS ORDERED: IOHEXOL 300 MG/ML 100ML VIAL. IV ONE (17:30)
[2018-05-19] MEDS ORDERED: CONTRAST GIVEN. MC PRN (17:30)
[2018-05-19 17:41] LABS: BASO # 0.1 x10^3/uL (0.0-0.2); BASO % 1 % (0-3); EOS # 0.1 x10^3/uL (0.0-0.7); EOS % 1 % (0-3); HEMATOCRIT 38.4 % (36.0-47.0); HEMOGLOBIN 13.2 g/dL (12.0-15.5); LYMPH # 2.5 x10^3/uL (1.0-4.8); LYMPH % 36 % (24-48); MEAN CORPUSCULAR HEMOGLOBIN 30 pg (25-35); MEAN CORPUSCULAR HGB CONC 34 g/dL (31-37); MEAN CORPUSCULAR VOLUME 86 fL (79-100); MONO # 0.3 x10^3/uL (0.0-1.1); MONO % 5 % (0-9); NEUT % 58 % (31-73); PLATELET COUNT 200 x10^3/uL (140-400); RED BLOOD COUNT 4.47 x10^6/uL (3.50-5.40); RED CELL DISTRIBUTION WIDTH 12.9 % (11.5-14.5); WHITE BLOOD COUNT 6.9 x10^3/uL (4.0-11.0)
[2018-05-19 17:49] LABS: CALCIUM 9.1 mg/dL (8.5-10.1); CREATININE 0.5 mg/dL (0.6-1.0); GFR 144.9; POTASSIUM 3.8 mmol/L (3.5-5.1)
[2018-05-19 17:54] LABS: ALBUMIN 3.7 g/dL (3.4-5.0); ALBUMIN/GLOBULIN RATIO 0.9 (1.0-1.7); TOTAL BILIRUBIN 0.6 mg/dL (0.2-1.0); TOTAL PROTEIN 7.6 g/dL (6.4-8.2)
--- NOTE | 2018-05-19 19:15 | RAD ---
CT scan abdomen and pelvis without contrast 05/19/2018 CLINICAL HISTORY: Lower abdominal pain. TECHNIQUE: After the intravenous administration of 75 cc of Omnipaque 300, contiguous, 5 mm axial sections were obtained to the abdomen and pelvis. One or more of the following individualized dose reduction techniques were utilized for this study: 1. Automated exposure control. 2. Adjustment of the mA and/or kV according to patient size. 3. Use of iterative reconstruction technique. FINDINGS: Comparison study is dated 02/10/2018. Images through the lung bases demonstrate minimal dependent subsegmental atelectasis bilaterally. The liver parenchyma has a decreased attenuation consistent with fatty infiltration. The liver is mildly enlarged measuring 20 cm in length. The spleen, pancreas, adrenal glands and left kidney are within normal limits. A 1 cm rounded low-attenuation area is seen involving the midpole of the right kidney which may represent a cyst. It is unchanged. The abdominal aorta tapers normally. Mild atherosclerotic calcification of the abdominal aorta and its branches is noted. Surgical clips are seen within the gallbladder fossa consistent with a cholecystectomy. No free fluid or free air is seen within the abdomen. There is no evidence of bowel obstruction. Images through the pelvis demonstrate the urinary bladder distended with urine. Tubal ligation bands are noted. No adnexal mass is seen. No free fluid is seen. Minimal S-shaped curvature of the thoracolumbar spine is seen. IMPRESSION: No acute abnormality is seen. Electronically signed by: Omar Schumacher MD (05/19/2018 7:12 PM) [facility]
[2018-05-19] MEDS ORDERED: HYDR-2761 PO (20:14)
[2018-05-19 20:44] VITALS: BP 118/69
[2018-05-19] MEDS ORDERED: HEPARIN PF 500 UNIT/5 ML DISP.SYRIN. IV ONE (21:00)
== END 2018-05-19 21:10 | disposition home or self-care (01) ==
LOC: ER 15:49
DX: K50.90 Crohn's disease, unspecified, without complications (principal); R19.7 Diarrhea, unspecified; Z90.49 Acquired absence of other specified parts of digestive tract; Z90.89 Acquired absence of other organs; Z98.51 Tubal ligation status; Z88.5 Allergy status to narcotic agent; Z88.8 Allergy status to other drugs, medicaments and biological substances
CPT/HCPCS: 36415; 74177; 80053; 81001; 81025; 83690; 85025; 87086; 96361; 96374; 96375; 96376; 99284; J2405; J3010; J7030; Q9967

== ENCOUNTER → 2019-01-18 | Outpatient (CLI) | payer BC, OTHER ==
[~2019-01-18] MED LIST changes: +OMEP40CA45 PO; -OMEP40CA5 PO; -PANT40TA3 PO; +PANT40TA77 PO
--- NOTE | 2019-01-18 16:38 | RAD ---
CHEST PA LATERAL History: Crohn's disease, drug therapy Comparison: June 21, 2015 Findings: 2 views of the chest are submitted. There is no infiltrate, pneumothorax, or effusion. Pericardial cardiac silhouette is within normal limits in size. There is again right internal jugular port catheter with the tip in the inferior aspect of the superior vena cava. Impression: 1. There is no radiographic evidence of acute cardiopulmonary disease. Electronically signed by: Vitor Gonzales MD (01/18/2019 4:35 PM) [id number]
== END | disposition home or self-care (01) ==
LOC: LAB 13:01
DX: Z13.21 Encounter for screening for nutritional disorder (principal); Z23 Encounter for immunization; K50.811 Crohn's disease of both small and large intestine with rectal bleeding; Z79.899 Other long term (current) drug therapy
CPT/HCPCS: 36415; 71046; 82306; 82607; 86705; 86706; 86708; 86709; 86803; 87340

== ENCOUNTER 2019-04-22 04:55 | Emergency (ER) | payer BC, OTHER ==
[2019-04-22] MEDS ORDERED: ONDANSETRON PF 4 MG/2 ML VIAL. IV ONE (06:00)
[2019-04-22] MEDS ORDERED: IV NORMAL SALINE 1000ML BAG 1,000 ML IV SCH (06:00)
--- NOTE | 2019-04-22 06:11 | PHYS DOC ---
Past Medical History Past Medical History: Hyperthyroid, Other Additional Past Medical Histor: chron's (TIM MEANS MD) Past Surgical History: Appendectomy, Cholecystectomy, Colectomy, Tubal ligation, Other Additional Past Surgical Histo: Bowel resection, prateek cath, filshy clamps (TIM MEANS MD) Alcohol Use: None Drug Use: None (TIM MEANS MD) Adult General Chief Complaint Chief Complaint: BLOODY STOOL HPI HPI Patient is a 28 year old female with history of Crohn's disease who presents with complaining of nausea and vomiting and bloody stool. Patient complaining of 5 episodes of vomiting per day for the last 4 days associated with 10-12 episodes of diarrhea with intermittent episodes of bloody stool and constant right lower quadrant sharp pain without radiation and rated her pain 8/10. Patient states she had temperature of 101 this morning and took Tylenol with improvement of temperature. Patient states she usually has 8-10 episodes of diarrhea a day but for the last 4 days has had more episodes of bowel m ovements. Patient denies chest pain, shortness of breath, urinary symptoms, dizziness and focal weakness, . (TIM MEANS MD) Review of Systems Review of Systems Constitutional: Denies chills [] Eyes: Denies change in visual acuity, redness, or eye pain [] HENT: Denies nasal congestion or sore throat [] Respiratory: Denies cough or shortness of breath [] Cardiovascular: No additional information not addressed in HPI [] GI: Reports abdominal pain, nausea, vomiting, bloody stools , diarrhea [] : Denies dysuria or hematuria [] Musculoskeletal: Denies back pain or joint pain [] Integument: Denies rash or skin lesions [] Neurologic: Denies headache, focal weakness or sensory changes [] Endocrine: Denies polyuria or polydipsia [] All other systems were reviewed and found to be within normal limits, except as documented in this note. (TIM MEANS MD) Current Medications Current Medications Current Medications Medications (Trade) Dose Ordered Sig/Darcy Start Time Stop Time Status Last Admin Dose Admin Diphenhydramine HCl (Benadryl) 25 mg 1X ONCE 04/22/19 08:00 04/22/19 08:01 DC 04/22/19 08:02 25 MG Ketamine HCl (Ketamine) 20 mg 1X ONCE 04/22/19 07:00 04/22/19 07:01 DC 04/22/19 08:02 20 MG Methylprednisolone Sodium Succinate (SOLU-Medrol 125MG VIAL) 125 mg 1X ONCE 04/22/19 08:00 04/22/19 08:01 DC 04/22/19 08:02 125 MG Ondansetron HCl (Zofran) 4 mg 1X ONCE 04/22/19 06:00 04/22/19 06:01 DC 04/22/19 06:39 4 MG Prochlorperazine Edisylate (Compazine) 10 mg 1X ONCE 04/22/19 08:00 04/22/19 08:01 DC 04/22/19 08:02 10 MG Sodium Chloride 1,000 ml @ 1,000 mls/hr Q1H 04/22/19 06:00 04/22/19 06:59 DC 04/22/19 06:39 1,000 MLS/HR (LIONEL OLIVER MD) Allergies Allergies Allergies Coded Allergies Type Severity Reaction Last Updated Verified fentanyl Allergy Severe Shortness of Air 04/22/19 Yes morphine Allergy Severe Anaphylaxis 02/07/17 No adalimumab Allergy Intermediate 02/07/17 Yes adhesive Adverse Reaction Intermediate SKIN BLISTERING, REDNESS, PAPER TAPE OK 02/07/17 Yes (LIONEL OLIVER MD) Physical Exam Physical Exam Constitutional: Well developed, well nourished, mild distress, non-toxic appearance. [] HENT: Normocephalic, atraumatic. Eyes: PERRLA, EOMI, conjunctiva normal, no discharge. [] Neck: Normal range of motion, no tenderness, supple, no stridor. [] Cardiovascular:Heart rate regular rhythm, no murmur [] Lungs & Thorax: Bilateral breath sounds clear to auscultation [] Abdomen: Bowel sounds normal, soft, no tenderness, no masses, no pulsatile masses. [] Skin: Warm, dry, no erythema, no rash. [] Back: No tenderness, no CVA tenderness. [] Extremities: No tenderness, no cyanosis, no clubbing, ROM intact, no edema. [] Neurologic: Alert and oriented X 3, no focal deficits noted. [] Psychologic: Affect normal, judgement normal, mood normal. [] (TIM MEANS MD) Current Patient Data Vital Signs Vital Signs Date Time Temp Pulse Resp B/P (MAP) Pulse Ox O2 Delivery O2 Flow Rate FiO2 04/22/19 05:14 97.6 64 14 116/86 (96) 93 Room Air 97.6 (LIONEL OLIVER MD) Lab Values Laboratory Tests Test 04/22/19 06:33 04/22/19 06:49 04/22/19 06:52 White Blood Count 5.5 x10^3/uL (4.0-11.0) Red Blood Count 4.46 x10^6/uL (3.50-5.40) Hemoglobin 13.0 g/dL (12.0-15.5) Hematocrit 38.0 % (36.0-47.0) Mean Corpuscular Volume 85 fL (79-100) Mean Corpuscular Hemoglobin 29 pg (25-35) Mean Corpuscular Hemoglobin Concent 34 g/dL (31-37) Red Cell Distribution Width 13.9 % (11.5-14.5) Platelet Count 156 x10^3/uL (140-400) Neutrophils (%) (Auto) 44 % (31-73) Lymphocytes (%) (Auto) 50 % (24-48) H Monocytes (%) (Auto) 4 % (0-9) Eosinophils (%) (Auto) 2 % (0-3) Basophils (%) (Auto) 1 % (0-3) Neutrophils # (Auto) 2.4 x10^3/uL (1.8-7.7) Lymphocytes # (Auto) 2.8 x10^3/uL (1.0-4.8) Monocytes # (Auto) 0.2 x10^3/uL (0.0-1.1) Eosinophils # (Auto) 0.1 x10^3/uL (0.0-0.7) Basophils # (Auto) 0.0 x10^3/uL (0.0-0.2) Prothrombin Time 12.3 SEC (11.7-14.0) Prothrombin Time INR 0.9 (0.8-1.1) Sodium Level 142 mmol/L (136-145) Potassium Level 3.5 mmol/L (3.5-5.1) Chloride Level 104 mmol/L (98-107) Carbon Dioxide Level 25 mmol/L (21-32) Anion Gap 13 (6-14) Blood Urea Nitrogen 13 mg/dL (7-20) Creatinine 0.6 mg/dL (0.6-1.0) Estimated GFR (Cockcroft-Gault) 117.4 BUN/Creatinine Ratio 22 (6-20) H Glucose Level 97 mg/dL (70-99) Calcium Level 8.9 mg/dL (8.5-10.1) Total Bilirubin 0.6 mg/dL (0.2-1.0) Aspartate Amino Transferase (AST) 11 U/L (15-37) L Alanine Aminotransferase (ALT) 27 U/L (14-59) Alkaline Phosphatase 82 U/L (46-116) Total Protein 7.5 g/dL (6.4-8.2) Albumin 4.1 g/dL (3.4-5.0) Albumin/Globulin Ratio 1.2 (1.0-1.7) Lipase 72 U/L (73-393) L Urine Collection Type Unknown Urine Color Sharyn Urine Clarity Clear Urine pH 5.5 Urine Specific [place] >=1.030 Urine Protein Negative mg/dL (NEG-TRACE) Urine Glucose (UA) Negative mg/dL (NEG) Urine Ketones (Stick) Negative mg/dL (NEG) Urine Blood Negative (NEG) Urine Nitrite Negative (NEG) Urine Bilirubin Small (NEG) Urine Urobilinogen Dipstick 0.2 mg/dL (0.2 mg/dL) Urine Leukocyte Esterase Negative (NEG) Urine RBC 0 /HPF (0-2) Urine WBC 1-4 /HPF (0-4) Urine Squamous Epithelial Cells Many /LPF Urine Bacteria Few /HPF (0-FEW) Urine Mucus Marked /LPF Urine Opiates Screen Pos (NEG) Urine Methadone Screen Neg (NEG) Urine Barbiturates Neg (NEG) Urine Phencyclidine Screen Neg (NEG) Urine Amphetamine/Methamphetamine Neg (NEG) Urine Benzodiazepines Screen Neg (NEG) Urine Cocaine Screen Neg (NEG) Urine Cannabinoids Screen Neg (NEG) Urine Ethyl Alcohol Neg (NEG) POC Urine HCG, Qualitative Hcg negative (Negative) Laboratory Tests 04/22/19 06:33 Laboratory Tests 04/22/19 06:33 (LIONEL OLIVER MD) EKG EKG [] (TIM MEANS MD) Radiology/Procedures Radiology/Procedures [] (TIM MEANS MD) Course & Med Decision Making Course & Med Decision Making Pertinent Labs and Imaging studies are pending. Sign out given to at 0600 for further evaluation and final disposition. Discussed current findings and plan with patient and family, who acknowledge understanding and agreement. (TIM MEANS MD) Course & Med Decision Making 28-year-old female frequent ER visits FOUR CT SCANS at this facility in the last couple of years old which showed no acute abnormality presenting with typical Crohn's disease flare vomiting pain diarrhea. Patient very comfortable-appearing in the emergency room does say that she is allergic to fentanyl Senokot-S tingling all over her body and some trouble breathing despite documentation at this facility in the recent past received fentanyl without issue. Says Tylenol isn't with him that works for her. On examination she had mild right lower quadrant tenderness she says her appendix was removed already vitals are stable waiting for labs we'll treat with IV ketamine Aftercare me at 8:30 AM the patient did feel a little bit better we talked in detail about how I do not think that Dilaudid is the right treatment for her we talked about how her last 4 CT scans here were negative I was concerned about the risk of radiation we did talk about the primary indication to check right now would be for rule out small bowel obstruction she is certain she does not have one of those because she is having so much diarrhea. I tend to agree. We have both agreed that there risk of continued radiation exposure outweighs the benefit of the CT scan at this time. Patient was resting comfortably did not throw up in the emergency room as of 8:30 AM. We will do a 5 mouth challenge prior to discharge. Successful she will go with a prednisone taper and strict return precautions as well as close follow-up with GI. She did get her usual darcy eduled regimen of hydrocodone earlier this month I checked K tracks (LIONEL OLIVER MD) Dragon Disclaimer Dragon Disclaimer This electronic medical record was generated, in whole or in part, using a voice recognition dictation system. (TIM MEANS MD) Departure Departure Impression: Primary Impression: Abdominal pain Additional Impressions: Crohn disease Acute diarrhea Disposition: 01 HOME, SELF-CARE Condition: STABLE Referrals: DINAH BARRAZA MD (PCP) Scripts Prednisone (PREDNISONE ) 10 Mg Tablet 10 MG PO UD for PREDNISONE TAPER, #39 TAB 0 Refills Take 3 tablets by mouth twice a day for 3 days, then take 2 tablets by mouth twice a day for 3 days, then take 1 tablet by mouth twice a day for 3 days, then take 1 tablet by mouth daily x 3 days, then stop. Prov: LIONEL OLIVER MD 04/22/19 Problem Qualifiers Primary Impression: Abdominal pain Abdominal location: right lower quadrant Qualified Codes: R10.31 - Right lower quadrant pain Additional Impressions: Crohn disease Gastrointestinal tract location: unspecified location Digestive disease complication type: unspecified complication Qualified Codes: K50.919 - Crohn's disease, unspecified, with unspecified complications TIM MEANS MD Apr 22, 2019 06:11 LIONEL OLIVER MD Apr 22, 2019 06:53
[2019-04-22 06:42] LABS: BASO % 1 % (0-3); EOS # 0.1 x10^3/uL (0.0-0.7); EOS % 2 % (0-3); LYMPH # 2.8 x10^3/uL (1.0-4.8); LYMPH % 50 % (24-48); MEAN CORPUSCULAR HEMOGLOBIN 29 pg (25-35); MEAN CORPUSCULAR HGB CONC 34 g/dL (31-37); MEAN CORPUSCULAR VOLUME 85 fL (79-100); MONO # 0.2 x10^3/uL (0.0-1.1); MONO % 4 % (0-9); NEUT # 2.4 x10^3/uL (1.8-7.7); NEUT % 44 % (31-73); PLATELET COUNT 156 x10^3/uL (140-400); RED BLOOD COUNT 4.46 x10^6/uL (3.50-5.40); RED CELL DISTRIBUTION WIDTH 13.9 % (11.5-14.5); WHITE BLOOD COUNT 5.5 x10^3/uL (4.0-11.0)
[2019-04-22 06:48] LABS: CALCIUM 8.9 mg/dL (8.5-10.1); CREATININE 0.6 mg/dL (0.6-1.0); GFR 117.4; POTASSIUM 3.5 mmol/L (3.5-5.1)
[2019-04-22 06:54] LABS: ALBUMIN 4.1 g/dL (3.4-5.0); ALBUMIN/GLOBULIN RATIO 1.2 (1.0-1.7); TOTAL BILIRUBIN 0.6 mg/dL (0.2-1.0); TOTAL PROTEIN 7.5 g/dL (6.4-8.2)
[2019-04-22 07:00] LABS: PROTHROMBIN TIME PATIENT 12.3 SEC (11.7-14.0)
[2019-04-22] MEDS ORDERED: KETAMINE HCL IN NACL, ISO-OSM 50 MG/5 ML SYRINGE IV ONE (07:00)
[2019-04-22 07:05] LABS: BILIRUBIN,URINE SMALL (NEG); CLARITY,URINE CLEAR; COLOR,URINE AMBER; NITRITE,URINE NEGATIVE (NEG); PH,URINE 5.5; PROTEIN,URINE NEGATIVE (NEG-TRACE); UROBILINOGEN,URINE 0.2 mg/dL (0.2 mg/dL)
[2019-04-22 07:17] LABS: BARBITURATES NEG (NEG); BENZODIAZEPINES NEG (NEG); CANNABINOIDS NEG (NEG); COCAINE NEG (NEG); METHADONE NEG (NEG); OPIATES POS (NEG); PHENCYCLIDINE NEG (NEG)
[2019-04-22 07:20] LABS: AMPHETAMINE/METHAMPHETAMINE NEG (NEG); BACTERIA,URINE FEW /HPF (0-FEW); RBC,URINE 0 /HPF (0-2); SQUAMOUS EPITHELIAL CELL,UR MANY /LPF
[2019-04-22] MEDS ORDERED: methylPREDNISolone SOD SUCC PF 125 MG/2 ML VIAL. IV ONE (08:00)
[2019-04-22] MEDS ORDERED: diphenhydrAMINE 50 MG/ML VIAL IVP ONE (08:00)
[2019-04-22] MEDS ORDERED: PROCHLORPERAZINE 10 MG/2 ML VIAL. IV ONE (08:00)
[2019-04-22 08:22] VITALS: BP 148/74
[2019-04-22] MEDS ORDERED: PRED-220 PO (08:29)
[2019-04-22] MEDS ORDERED: HEPARIN PF 500 UNIT/5 ML DISP.SYRIN. IVP ONE (08:45)
== END 2019-04-22 08:47 | disposition home or self-care (01) ==
LOC: ER 04:55
DX: K50.919 Crohn's disease, unspecified, with unspecified complications (principal); R11.2 Nausea with vomiting, unspecified; Z90.89 Acquired absence of other organs; Z90.49 Acquired absence of other specified parts of digestive tract; Z98.51 Tubal ligation status; Z88.4 Allergy status to anesthetic agent; Z88.5 Allergy status to narcotic agent; Z88.8 Allergy status to other drugs, medicaments and biological substances
CPT/HCPCS: 36415; 80053; 80307; 81001; 81025; 83690; 85025; 85610; 96361; 96374; 96375; 99284; J0780; J1200; J2405; J2930; J7030